=== PATIENT | male | born 1970 | race Caucasian/White ===

== ENCOUNTER 2016-11-27 18:12 | Emergency (ER) | payer MEDICARE, MEDICAID ==
[~2016-11-27 18:12] MED LIST: ALBUTEROL SULF8.5 GM IH; ALBUTEROL17 GM INH; AVANDIA4 MG; BACTRIM DS TABL1 TAB PO; COMPAZINE10 M PO; CYCLOBENZAPRINE10 M1 PO; DARVOCET-N 1001 TAB PO; EFFEXOR XR150 MG; EFFEXOR XR150 MG PO; ENALAPRIL MALEA20 MG; ENALAPRIL MALEA20 MG PO; FLEXERIL10 MG PO; GABAPENTIN800 MG PO; GLUCOPHAGE1000 MG PO; LANTUS100 U/ML; LANTUS100 U/ML SC; LANTUS100 UNITS/ SC; MEDROL4 M2 PO; METFORMIN HCL1000 MG; MOTRIN600 MG PO; NEURONTIN800 MG; NORCO 5-325 TA1 EACH PO; NORCO 5/325 TAB1 TAB PO; NORFLEX100 MG; NORFLEX100 MG/TA1 PO; ONGLYZA5 MG PO; PRILOSEC OTC20 MG; PRILOSEC10 MG PO; RELAFEN750 MG; REMERON30 MG; REMERON30 MG PO; RISPERDAL0.5 MG; ROBITUSSIN DM118 ML PO; TRAMADOL HCL50 MG PO; TRICOR48 M2 PO; TYLENOL325 M2 PO; ULTRAM50 MG; VASOTEC20 MG PO; VICODIN 5/500 T1 TAB PO; ZITHROMAX250 MG PO; ZITHROMAX250MG Z-PAK PO; ZOCOR40 MG PO; [UNRECOGNIZED DRUG - REMARK]
[2016-11-27] MEDS ORDERED: FENOFIBRATE (18:38)
[2016-11-27 19:41] LABS: BASO % 0.6 % (0-2); BASO ABSOLUTE COUNT 0.1 tho/cmm (0.0-0.2); EOSINOPHIL ABSOLUTE COUNT 0.4 tho/cmm (0.0-0.7); HCT-HEMATOCRIT 40.8 % (36.0-53.5); HGB-HEMOGLOBIN 13.9 gm/dl (13.5-17.0); IMMATURE GRANULOCYTES ABSOLUTE 0.06 tho/cmm (0-0.03); IMMATURE GRANULOCYTES PERCENT 0.8 % (0-0.3); LYMPH ABSOLUTE COUNT 2.7 tho/cmm (0.8-4.5); MCH (MEAN CORPUSCULAR HGB) 30.8 pg (28.0-32.0); MCHC MEAN CORPUSCULAR HGB CONC 34.1 % (32.0-36.0); MCV (MEAN CELL VOLUME) 90.3 fl (82.0-96.0); MEAN PLATELET VOLUME 10.9 cmc (9.4-12.4); MONO % 7.5 % (0-12); MONOCYTE ABSOLUTE COUNT 0.6 tho/cmm (0.0-1.2); NEUTROPHIL ABSOLUTE COUNT 4.2 tho/cmm (1.6-8.0); NEUTROPHIL-AUTOMATED 4.2 tho/cmm (1.6-8.0); NEUTROPHILS % 52.1 % (40-80); PLATELET COUNT 191 tho/cmm (150-450); RED BLOOD COUNT 4.52 mil/cmm (4.40-5.70); RED CELL DISTRIBUTION WIDTH 13.6 % (12.4-16.4)
[2016-11-27 19:55] LABS: ALB/GLOB RATIO 0.8 (0.8-2.0); ALBUMIN 3.3 g/dl (3.5-5.0); ALKALINE PHOSPHATASE 110 U/L (33-138); ALT/SGPT 102 U/L (12-78); AMYLASE 40 U/L (20-90); ANION GAP 12 mmol/L (0-20); AST/SGOT 62 U/L (10-40); BILIRUBIN,TOTAL 0.3 mg/dl (0.0-1.5); BLOOD UREA NITROGEN 10 mg/dl (6-24); CALCIUM 8.6 mg/dl (8.5-10.5); CARBON DIOXIDE-VENOUS 27 mmol/L (22-32); CHLORIDE 101 mmol/l (96-110); CREATININE 0.84 mg/dl (0.60-1.30); GLUCOSE 292 mg/dL (70-110); LIPASE 186 U/L (73-393); POTASSIUM 4.1 mmol/L (3.7-5.1); SODIUM 136 mmol/L (135-145); eGFR VALUE FOR BLACK >90 mL/Min
[2016-11-27 20:32] LABS: URINE LEUKOCYTE ESTERASE NEGATIVE (NEG); URINE PH 6.5 (5.0-8.0); URINE PROTEIN NEGATIVE (NEG); URINE SPECIFIC GRAVITY 1.015 (1.003-1.030)
[2016-11-27 20:33] LABS: URINE APPEARANCE CLEAR; URINE BILIRUBIN NEGATIVE (NEG); URINE BLOOD NEGATIVE (NEG); URINE COLOR YELLOW; URINE GLUCOSE (UA) LARGE (NEG); URINE KETONE NEGATIVE (NEG); URINE NITRITE NEGATIVE (NEG)
[2016-11-27] MEDS ORDERED: ZOFRAN ODT4 MG PO (21:26)
[2016-11-27] MEDS ORDERED: NORCO 5-325 TA1 EACH PO (21:26)
[2017-02-17] MEDS ORDERED: MEDROL4 M2 PO (18:11)
[2017-02-21] MEDS ORDERED: PREDNISONE20 M1 PO (19:49)
[2017-02-21] MEDS ORDERED: VISTARIL25 M1 PO (19:49)
== END 2016-11-27 21:35 ==
LOC: EDMED 18:12
PROVIDERS: Physician Assistant
DX: E11.9 Type 2 diabetes mellitus without complications (principal); I10 Essential (primary) hypertension; F31.9 Bipolar disorder, unspecified; I25.2 Old myocardial infarction; Z88.8 Allergy status to other drugs, medicaments and biological substances; Z79.4 Long term (current) use of insulin; Z79.899 Other long term (current) drug therapy
CPT/HCPCS: J2270; J2405; Q9967